=== PATIENT | male | born 1980 | race Caucasian/White ===

== ENCOUNTER 2020-02-26 10:12 | Emergency (ER) | payer OTHER, SELFPAY ==
[~2020-02-26] VITALS: Ht 180.3 cm; Wt 83.9 kg
[2020-02-26 10:12] VITALS: BP_SYST 146
--- NOTE | 2020-02-26 10:12 | NUR ---
Patient to ER surge tent for evaluation. Side rails up.
--- NOTE | 2020-02-26 10:13 | NUR ---
Patient came from home for evaluation. Patient reports that he has had contact with a COVID-19 positive patient 2 weeks ago who tested positive 1 week ago. Patient reports intermittent symptoms since Tuesday which include, runny nose SOB, lethargy, and mild bodyaches.
--- NOTE | 2020-02-26 10:40 | NUR ---
ER in tent examining patient.
--- NOTE | 2020-02-26 11:07 | NUR ---
ER discussed with the patient the results and treatment provided. Patient given written and verbal discharge instructions and verbalized understanding. Opportunity for questions provided and answered. Patient in stable condition, last set of vital signs within normal limits, pain scale 0/10, speaking in full sentences and ambulated with a steady gait upon discharge. ID arm band removed. No Rx given. Patient educated on pain management and to follow up with PMD. Medication side effect fact sheet provided.
[2020-02-26 11:08] VITALS: BP_SYST 146
== END 2020-02-26 11:08 | disposition home or self-care (01) ==
LOC: SED 10:12
DX: R05 Cough (principal); R00.2 Palpitations; M79.18 Myalgia, other site; Z20.828 Contact with and (suspected) exposure to other viral communicable diseases
CPT/HCPCS: 99283; C9803; U0003